=== PATIENT | male | born 1950 | race Caucasian/White ===

== ENCOUNTER 2020-09-22 20:49 | Emergency (ER) | payer MEDICARE, OTHER, SELFPAY ==
[2020-09-22 20:56] VITALS: BP 155/70; PULSE 89; RESP 14; TEMP 36.6; O2SAT 98; BMI 29.5
--- NOTE | 2020-09-22 21:04 | ED.WOUNDLAC ---
HPI - Wound/Laceration General Chief Complaint: Wound/Laceration Stated Complaint: sliced index finger left hand with a saw Time Seen by Provider: 09/22/20 20:58 Source: patient Mode of arrival: Ambulatory Limitations: no limitations History of Present Illness HPI narrative: 70-year-old male here for evaluation of a cut that he sustained to his left index finger. It occurred today prior to arrival. He is using a solid home. Does not remember when his last tetanus shot was. He did clean and cover with a bandage prior to arrival. No other injuries reported from the event. Related Data Allergies Allergy/AdvReac Type Severity Reaction Status Date / Time No Known Drug Allergies Allergy Verified 09/22/20 21:03 Review of Systems Constitutional Constitutional: Denies headache(s) ENT Ears, Nose, Mouth, and Throat: Denies headache(s) Musculoskeletal Musculoskeletal: Denies arthralgias, Denies myalgias and Denies tingling Integumentary/Breasts Comments: Cut to left index finger Neurologic Neurologic: Denies headache(s) and Denies tingling Hematologic/Lymphatic Hematologic/Lymphatic: Denies easy bleeding and Denies easy bruising Patient History Surgical History No pertinent past surgical history Social History marital status: lives independently: Yes Exam Initial Vital Signs Initial Vital Signs: Vital Signs Temperature 97.8 F 09/22/20 20:56 Pulse Rate 89 09/22/20 20:56 Respiratory Rate 14 09/22/20 20:56 Blood Pressure 155/70 H 09/22/20 20:56 Pulse Oximetry 98 09/22/20 20:56 Const General: cooperative and comfortable Limitations: mental status not altered HENHI Head: normal to inspection and normocephalic Cardio Pulses: radial pulses present on the left Skin Other: 3 cm laceration to the radial aspect of the left index finger crosses the PIP joint. Extrem General: full ROM and capillary refill normal Psych Appearance: grossly normal and well kempt Procedures Laceration Repair Laceration 1: Site: other (Index finger) Side (If applicable): left Size (cm): 3 Description: flap Depth: simple, single layer Local Anesthetic: lidocaine 1% and with bicarb Amount of anesthesia used (mL): 3 Pre-repair: wound explored, irrigated extensively and deep structures intact Skin layer closed with: nylon Size (cm): 4-0 Number of sutures: 3 Technique: simple, interrupted Course Orders Ordered: Discontinued Medications Bacitracin (Bacitracin Oint 0.9 Gm Pckt) 1 applic TOP NOW ONE Stop: 09/22/20 21:05 Last Admin: 09/22/20 21:14 Dose: 1 applic Documented by: CANDI Diphtheria/Tetanus/Acell Pertussis (Tet,Diph,Pertuss(Acell),Vac/Pf 0.5 Ml Syringe) 0.5 ml IM .ONCE ONE Stop: 09/22/20 21:05 Last Admin: 09/22/20 21:13 Dose: 0.5 ml Documented by: CANDI Lidocaine/Sodium Bicarbonate (Lido 1%/Sod Bicarb 8.4% (10ml) 10 Ml Syringe) 10 ml INJ NOW ONE Stop: 09/22/20 21:05 Last Admin: 09/22/20 21:14 Dose: 10 ml Documented by: CANDI Vital Signs Vital signs: Vital Signs - 8 hr 09/22/20 20:56 Temperature 97.8 F Pulse Rate 89 Respiratory Rate 14 Blood Pressure 155/70 H Pulse Oximetry 98 MDM - Wound/Laceration MDM Narrative Medical decision making narrative: Tetanus was updated. Laceration closest described above. No indication for radiologic studies. Has full range of motion of the D IP joint of the left next finger. The laceration does not disrupt the joint capsule. Patient is given care instructions and return precautions expressed standing. Discharge Plan Departure Patient Disposition: Home Clinical Impression: Laceration Instructions: DI for Laceration Repair Activity Restrictions/Additional Instructions: The stitches do need to be removed in 7-10 days. The splint is to remind you not to excessively bend your index finger. You can cover with antibiotic ointment. You can also shower like normal in use soap and water like normal. Return to the emergency department for any new or worsening symptoms Referrals: King Montanez MD [Primary Care Provider] -
[2020-09-22] MEDS: TET,DIPH,PERTUSS(ACELL),VAC/PF 0.5 ML SYRINGE IM (21:13)
[2020-09-22] MEDS: BACITRACIN OINT 0.9 GM PCKT 1 APPLIC TOP (21:14)
[2020-09-22] MEDS: LIDO 1%/SOD BICARB 8.4% (10ML) 10 ML SYRINGE INJ (21:14)
== END 2020-09-22 21:50 | disposition home or self-care (01) ==
PROVIDERS: Emergency Provider Emergency Medicine
DX: S61.211A Laceration without foreign body of left index finger without damage to nail, initial encounter (principal); W26.8XXA Contact with other sharp object(s), not elsewhere classified, initial encounter; Z23 Encounter for immunization
CPT/HCPCS: 12002; 90471; 99282; 99283; 90715

== ENCOUNTER → 2020-10-04 16:13 | Outpatient (CLI) | payer MEDICARE, OTHER, SELFPAY ==
--- NOTE | 2020-10-04 | DI.ECHO.S_ITS ---
Version: 1 Study ID: [id number] [place] [address] Name: YAO RODRIGUEZ Study Date: 10/04/2020, 4: 32 PM : 1950 BP: 161 / 62 mmHg Gender: Male Height: 74.5 in Age: 70 Years Weight: 230 lb BSA: 2.32 mA? Ordering: DANIELLE CHENG Referring: DANIELLE CHENG Clinician: Marie Robledo Reason For Study: PALPITATIONS History: Summary Statements Normal sinus rhythm. Normal LV size, wall thickness, wall motion and LV systolic function. EF is 60-65%. Normal chamber sizes. Aortic valve leaflets are moderately thickened and calcified. In particular while right coronary leaflet moves, left and non-coronary leaflets are fused. There is mild associated aortic stenosis with mean gradient of 12 mm Hg and peak velocity of 2.6 m/sec. Otherwise no significant abnormalities. No prior study available for comparison. Procedure: A two-dimensional transthoracic echocardiogram with color flow and Doppler was performed. The study quality was technically adequate. There is no prior echocardiogram noted for this patient. The patient was in sinus rhythm with heart rates between 62-83 bpm during the exam. Left Ventricle: Diastolic parameters suggest probable normal left ventricular diastolic function and normal filling pressures. The ejection fraction is estimated to be 60-65%. The left ventricle is normal in size and wall thickness. Right Ventricle: The right ventricle is normal in size and function. Atria: There is no Doppler evidence for an interatrial shunt. The left atrial size is normal. Right atrial size is normal. Mitral Valve: There is trace mitral regurgitation. The mitral valve is normal in structure and function. Aortic Valve: No aortic regurgitation is present. The aortic valve mean gradient is 17 mmHg. The peak aortic velocity is 2.6 m/sec. The aortic valve is moderately calcified. A bicuspid aortic valve cannot be excluded. Tricuspid Valve: There is trace tricuspid regurgitation. The right ventricular systolic pressure is estimated to be at least 30 mmHg based on an estimated right atrial pressure of 3 mm Hg. The tricuspid valve is normal in structure and function. Pulmonic Valve: There is no pulmonic valvular regurgitation. The pulmonic valve leaflets are thin and pliable; valve motion is normal. Great Vessels: The ascending aorta is mildly enlarged. The aortic root is normal size. The IVC is of normal diameter and collapses greater than 50% with a sniff. This suggests a low right atrial pressure of 3 mm Hg. Pericardium/ Pleura: There is no pericardial effusion. There is no pleural effusion. 2D and M-Mode Measurements and Calculations LVIDd: 5.0 cm LVOT diam: 2.20 cm LVIDs: 3.2 cm Ao root diam: 3.5 cm IVSd: 0.97 cm asc Aorta Diam: 3.7 cm LVPWd: 1.04 cm Ao Arch Diam (Prox Trans): 3.1 cm LV schulz. diameter/BSA (cm/m^2): 2.17 LV sys. diameter/BSA (cm/m^2): 1.38 EPSS: 0.87 cm RVD1 (basal): 3.7 cm IVC diam: 1.05 cm TAPSE: 2.9 cm LA A4 area: 19.0 hot shot? RA area: 20.4 hot shot? LA A2 area: 24.9 hot shot? RA long axis: 5.2 cm LA length (vol): 5.4 cm RA vol: 67.9 ml LA vol: 75.2 ml RA : 29.3 ml/mA? LA vol index: 32.4 ml/mA? Doppler Measurements and Calculations Ao V2 max: 259.6 cm/sec LVOT Max Herman: 116.2 cm/sec Ao V2 mean: 173.8 cm/sec LV V1 max P.4 mmHg Ao V2 VTI: 52.9 cm LV V1 VTI: 22.5 cm Ao max P.5 mmHg Ao mean P.0 mmHg NOLA(I,D): 1.61 hot shot? NOLA(V,D): 1.70 hot shot? NOLA indexed to BSA (cm^2/m^2): 0.70 sev ratio: 0.43 MV E max herman: 63.0 cm/sec MV dec time: 0.21 sec MV A max herman: 69.5 cm/sec MV E/A: 0.91 Med Peak E' Herman: 7.1 cm/sec Lat Peak E' Herman: 11.5 cm/sec E/e' average: 7.1 TR max herman: 261.0 cm/sec PA V2 max: 91.3 cm/sec TR max P.2 mmHg PA mean P.63 mmHg Electronically signed by: Zofia Gonsales M.D. 10/04/2020, 11: 38 PM
== END ==
PROVIDERS: PCP Internal Medicine; Referring Provider Internal Medicine; Visit Provider Internal Medicine
DX: I35.0 Nonrheumatic aortic (valve) stenosis (principal); I77.89 Other specified disorders of arteries and arterioles; R00.2 Palpitations
CPT/HCPCS: 93306

== ENCOUNTER → 2024-08-24 12:45 | Outpatient (CLI) | payer MEDICARE, OTHER, SELFPAY ==
--- NOTE | 2024-08-24 12:48 | DI.US.S_ITS ---
PROCEDURE: US THYROID INDICATIONS: mass TECHNIQUE: Real-time scanning was performed of the thyroid gland, with image documentation. COMPARISON: None. FINDINGS: Thyroid: Right lobe measures 5.1 x 4.2 x 1.4 cm. Left lobe measures 5.3 x 1.8 x 1.4 cm. Isthmus is 0.5 cm thick. Echotexture is heterogeneous. Nodule number: 1 Location: Right mid inferior pole Size: 1.6 x 1.7 x 1.2 cm. Composition: Solid Echogenicity: Heterogeneous Shape: Taller than wide Margins: Indistinct Echogenic foci: Scattered macro calcifications Total points: Nine ACR TI-RADS category: Five Nodule number: 2 Location: Left superior pole Size: 1.0 x 1.0 x 0.7 cm Composition: Solid Echogenicity: Isoechoic to hypoechoic Shape: Taller than wide Margins: Smooth Echogenic foci: No Total points: Seven ACR TI-RADS category: Five IMPRESSION: Bilateral thyroid nodules, right larger than left with characteristics of TI-RADS 5 nodules. FNA of each nodule is recommended. ACR TI-RADS definitions and recommendations: TI-RADS 1 (benign): 0 points. FNA not needed. TI-RADS 2 (not suspicious): 2 points. FNA not needed. TI-RADS 3: 3 points. * FNA if 2.5 cm or larger, follow up if 1.5 cm or larger (at 1, 3, and 5 years). TI-RADS 4: 4-6 points. * FNA if 1.5 cm or larger, follow up if 1 cm or larger (at 1, 2, 3, and 5 years). TI-RADS 5: 7 points or more. * FNA if 1 cm or larger, follow up if 0.5 cm or larger (every year for 5 years). Dictated by: Evelina Pineda M.D. on 08/24/2024 at 14:40 Approved by: Evelina Pineda M.D. on 08/24/2024 at 14:46
== END ==
LOC: US 12:46
PROVIDERS: PCP Internal Medicine
DX: L98.9 Disorder of the skin and subcutaneous tissue, unspecified (principal); E04.2 Nontoxic multinodular goiter
CPT/HCPCS: 76536

== ENCOUNTER → 2024-10-19 | Outpatient (CLI) | payer MEDICARE, OTHER, SELFPAY ==
--- NOTE | 2024-10-19 | PATH_ITS ---
Note [facility] Accession Number: [id number] TESTS RESULT FLAG UNITS REF RANGE LAB Clinician Provided Cytology Information No. of containers..01 Other (Miscellaneous) No. of containers..02 Previously Prepared Cytology Slide Source: RIGHT THYROID NODULE DIAGNOSIS: RIGHT THYROID NODULE BENIGN. B[place]ES[place] CATEGORY II. SPECIMEN CONSISTS OF BENIGN FOLLICULAR CELLS, HEMOSIDERIN-LADEN MACROPHAGES, COLLOID, AND BLOOD. THIS PATTERN IS CONSISTENT WITH FOLLICULAR NODULAR DISEASE. Pathologist ICD10: E04.1 Signed out by: Aurora Maradiaga MD, Pathologist NPI- [id number] Performed by: Jules Tamez, [employer]illery Operations Specialist ([facility]) Gross description: 30 CC, COLORLESS, CLEAR RECIEVED: IN CYTOLYT WITH 6 ALCOHOL FIXED AND 6 QUICK STAINED SLIDES ALSO 1 RNA VIAL WILL ON 07-10-2025.VO /VDU 10/20/2024 0746 Local FLAG LEGEND: L-Low Normal,H-High Normal,LL-Alert Low,HH-Alert High <-Panic Low,>-Panic High,A-Abnormal,AA-Critical Abnormal Performed at: 01 =Z [address] [facility], [place] [address] Nickolas Purdy MD, Performed at: [address] [facility], [place], [place] [id number] MD Nickolas Purdy MD Phone: [phone]
--- NOTE | 2024-10-19 | DI.US.S_ITS ---
PROCEDURE: US FINE NEEDLE ASPIRATION INDICATIONS: RIGHT THYROID NODULE TECHNIQUE: The indications, alternatives, benefits, risks, and complications of the procedure were explained to the patient. Written informed consent was obtained and placed in the chart. The thyroid region was examined sonographically and a site was chosen for ultrasound guided percutaneous sampling. The skin was prepared and draped in the usual fashion, and anesthetized with 1% lidocaine infiltrated from the skin down to the thyroid gland. Multiple passes were then performed, with contents emptied into an appropriate pathology specimen container. A bandage was applied to the area of access at completion of the study. COMPARISON: None. FINDINGS: Location(s) of lesion(s) sampled: Right mid inferior pole 1.7 cm nodule; the left superior pole 1 cm nodule was re-evaluated and did not meet criteria for biopsy [place]: 25 gauge hypodermic needles. Number of passes: 6 Medications: 1% lidocaine for local anaesthesia. Complications: None. IMPRESSION: Successful ultrasound-guided thyroid nodule fine needle aspiration, with cytology results pending. Please see chart below for management recommendations based on cytology results. [facility] ReportingRecommendationsNon-diagnostic* Repeat US-guided FNA, with on-site cytology evaluation if possible. * Repeated non-diagnostic nodules without high suspicion US features: close observation vs surgical consult. * Consider surgery if nodule has high suspicion US features, grows >20% in 2 dimensions on followup, or patient has clinical risk factors for malignancy. Benign* If nodule has high suspicion US features: repeat US and FNA within 12 months. * If nodule has low to intermediate suspicion US features: repeat US at 12-24 months. If nodule grows (20% increase in at least 2 dimensions, with minimal increase of 2 mm or >50% change in volume), or development of new suspicious US features, then repeat FNA or continue followup. * If nodule has very low suspicion US features: followup US at >24 months. Atypia of undetermined significance, follicular lesion of undetermined significanceRepeat FNA, molecular testing, followup US, or surgical consult.Follicular neoplasm, suspicious for follicular neoplasmSurgical consult; also consider molecular testing. Suspicious for malignancySurgical consult.MalignantSurgical consult. Dictated by: Nash Burks M.D. on 10/26/2024 at 16:44 Approved by: Nash Burks M.D. on 10/26/2024 at 16:45
== END ==
LOC: US 13:37
PROVIDERS: Referring Provider Radiology Diagnostic Radiology; Visit Provider Radiology Diagnostic Radiology
DX: E04.2 Nontoxic multinodular goiter (principal)
CPT/HCPCS: 10005

== ENCOUNTER → 2025-02-18 12:57 | Outpatient (CLI) | payer MEDICARE, OTHER, SELFPAY ==
--- NOTE | 2025-02-18 12:59 | DI.US.S_ITS ---
PROCEDURE: US THYROID INDICATIONS: NULTIPLE THYROID NODULES TECHNIQUE: Real-time scanning was performed of the thyroid gland, with image documentation. COMPARISON: [facility], US, US THYROID, 08/24/2024, 13:08. FINDINGS: Thyroid: Right lobe measures 4.6 x 1.9 x 1.7 cm. Left lobe measures 5.2 x 1.6 x 1.5 cm. Isthmus is 0.5 cm thick. Echotexture is homogeneous. Nodule number: 1 Location: Right mid inferior Size: 1.8 x 1.4 x 1.1 cm compared to 1.6 x 1.7 x 1.2 cm. Composition: Solid Echogenicity: Hypoechoic Shape: wider than tall. Margins: Irregular Echogenic foci: Macrocalcifications Total points: 5 ACR TI-RADS category: 4 Nodule number: 2 Location: Left superior Size: 1.0 x 1.0 x 0.9 cm compared to 1.0 x 1.0 x 0.7 cm. Composition: Solid Echogenicity: Hypoechoic Shape: wider than tall. Margins: Irregular Echogenic foci: Macrocalcification Total points: 5 ACR TI-RADS category: 4 IMPRESSION: Category 4 lesions are stable compared to prior exam and recommend continued interval follow-up as below. ACR TI-RADS definitions and recommendations: TI-RADS 1 (benign): 0 points. FNA not needed. TI-RADS 2 (not suspicious): 2 points. FNA not needed. TI-RADS 3: 3 points. * FNA if 2.5 cm or larger, follow up if 1.5 cm or larger (at 1, 3, and 5 years). TI-RADS 4: 4-6 points. * FNA if 1.5 cm or larger, follow up if 1 cm or larger (at 1, 2, 3, and 5 years). TI-RADS 5: 7 points or more. * FNA if 1 cm or larger, follow up if 0.5 cm or larger (every year for 5 years). Dictated by: Elizabeth Wells M.D. on 02/20/2025 at 9:50 Approved by: Elizabeth Wells M.D. on 02/20/2025 at 9:55
== END ==
PROVIDERS: Referring Provider Otolaryngology; Visit Provider Otolaryngology
DX: E04.2 Nontoxic multinodular goiter (principal)
CPT/HCPCS: 76536

== ENCOUNTER → 2025-02-18 13:00 | Outpatient (CLI) | payer MEDICARE, OTHER, SELFPAY ==
--- NOTE | 2025-02-18 13:01 | DI.MRI.S_ITS ---
PROCEDURE: MR LUMBAR SPINE WO CON INDICATIONS: LUMBAR SPONDYLOSIS,GAIT INSTABILITY,SHUFFLING TECHNIQUE: Noncontrast sagittal T1 spin echo and T2 fast echo, sagittal STIR, and T2 fast spin echo through the lumbar spine. In cases with scoliosis, additional coronal T2 fast spin echo may be performed. COMPARISON: [facility], CR, XR LUMBAR SPINE WITH FLEXION EXTENSION 5 VIEWS, 02/03/2025, 9:52. (Additional prior imaging is not available for review from the archive at the time of this dictation.) FINDINGS: Image quality: Diagnostic. Alignment and Curvature: There is normal bony alignment. Bone Marrow: Marrow is of normal overall signal. No acute vertebral body compression fractures. Spinal Cord: Conus medullaris terminates at the L1 level. Visualized cord demonstrates normal signal and size. Paraspinous Soft Tissues: No paravertebral masses. T12-L1: [id number] loss of disc height and disc signal can be seen. Mild generalized disc bulge is seen. There is a superimposed central disc protrusion. Mild bilateral neural foraminal narrowing is seen. Mild central canal narrowing is seen. L1-L2: Mild loss of disc height is seen. Loss of disc signal is seen. Mild generalized disc bulge is seen. There is a superimposed central disc protrusion. Mild facet joint hypertrophy is seen. Moderate bilateral neural foraminal narrowing is seen. Mild central canal narrowing is seen. L2-L3: At least moderate loss of disc height and disc signal can be seen. Moderate generalized disc bulge is seen. There is a superimposed central disc protrusion. Mild facet joint hypertrophy is seen. There is at least moderate bilateral neural foraminal narrowing, left worse than right. There is a degree of compression seen upon the exiting nerve roots. Mild central canal narrowing is seen. L3-L4: The disc height is well-preserved. Loss of disc signal is seen at this level. Mild generalized disc bulge is seen. Mild facet joint hypertrophy is seen. There is at least moderate bilateral neural foraminal narrowing seen. There is a degree of compression seen upon the exiting nerve roots. Minimal central canal narrowing is seen. L4-L5: Moderate loss of disc height is seen. Loss of disc signal is seen. Moderate disc bulge is seen, which is eccentric to the right. There is a superimposed central disc protrusion. Mild facet joint hypertrophy is seen. There is moderate to severe bilateral neural foraminal narrowing seen, with an associated degree of compression seen upon the exiting nerve roots. Mild to moderate central canal narrowing is seen. L5-S1: The disc height is well-preserved. Loss of disc signal is seen at this level. Mild generalized disc bulge is seen. There is a superimposed central disc protrusion. Mild facet joint hypertrophy is seen. There is mild right-sided and no left-sided neural foraminal narrowing. Minimal central canal narrowing is seen. IMPRESSION: Multiple levels of lumbar spine degenerative change can be seen, which are worst at the L4-L5 level. Dictated by: Wicho Morales M.D. on 02/19/2025 at 15:16 Approved by: Wicho Morales M.D. on 02/19/2025 at 15:19
== END ==
PROVIDERS: Referring Provider Physician Assistant Surgical; Visit Provider Physician Assistant Surgical
DX: M47.816 Spondylosis without myelopathy or radiculopathy, lumbar region (principal); M47.817 Spondylosis without myelopathy or radiculopathy, lumbosacral region; R26.81 Unsteadiness on feet; R26.89 Other abnormalities of gait and mobility; E04.2 Nontoxic multinodular goiter
CPT/HCPCS: 72148; 76536